=== PATIENT | male | born 1995 | race Asian ===

== ENCOUNTER 2017-09-18 13:28 | Emergency (ER) | payer MEDICAID, OTHER ==
[2017-09-18 13:43] VITALS: BP 122/76
[2017-09-18 14:43] LABS: APPEARANCE,URINE CLEAR; BILIRUBIN,URINE NEGATIVE (NEGATIVE); COLOR,URINE STRAW; GLUCOSE, URINE NEGATIVE (NEGATIVE); KETONES,URINE NEGATIVE (NEGATIVE); LEUKOCYTE ESTERASE,URINE NEGATIVE (NEGATIVE); NITRITE,URINE NEGATIVE (NEGATIVE); PROTEIN,URINE NEGATIVE (NEGATIVE); URINE SPECIFIC GRAVITY 1.002; UROBILINOGEN,URINE NEGATIVE mg/dL (<2.0)
[2017-09-18] MEDS ORDERED: HYDROCODONE/ACETAMINOPHEN 5-325 MG TABLET PO ONE (14:50)
[2017-09-18] MEDS ORDERED: CYCLOBENZAPRINE HCL 10 MG TABLET PO ONE (14:50)
--- NOTE | 2017-09-18 14:51 | ER Document Report ---
HPI - HPI Patient complains to provider of: right sided back pain Onset: This morning Onset/Duration: Sudden Quality of pain: Achy, Sharp Severity: Moderate Pain Level: 3 Context: Patient states he was lifting boxes at work, and his right lower back began to hurt after lifting a particularly heavy box. No loss of control of bowels or bladder. Associated Symptoms: None Exacerbated by: Movement Relieved by: Remaining still Similar symptoms previously: No Recently seen / treated by doctor: No - ROS ROS below otherwise negative: Yes Systems Reviewed and Negative: Yes All other systems reviewed and negative - CARDIOVASCULAR Cardiovascular: DENIES: Chest pain - RESPIRATORY Respiratory: DENIES: Trouble Breathing - GASTROINTESTINAL Gastrointestinal: DENIES: Abdominal Pain, Nausea - URINARY Urinary: DENIES: Dysuria, Urgency, Frequency - MUSCULOSKELETAL Musculoskeletal: REPORTS: Back Pain - DERM Skin Color: Normal Skin Problems: None Past Medical History - General Information source: Patient - Social History Smoking Status: Never Smoker Chew tobacco use (# tins/day): No Frequency of alcohol use: Occasional Drug Abuse: Marijuana Lives with: Family Family History: Reviewed & Not Pertinent Patient has suicidal ideation: No Patient has homicidal ideation: No Pulmonary Medical History: Reports: Hx Asthma GI Medical History: Reports: Hx Hiatal Hernia Past Surgical History: Reports: Hx Inguinal Hernia, Hx Orthopedic Surgery - right knee - Immunizations Immunizations up to date: Yes Hx Diphtheria, Pertussis, Tetanus Vaccination: Yes Vertical Provider Document - CONSTITUTIONAL Agree With Documented VS: Yes Exam Limitations: No Limitations General Appearance: WD/WN, No Apparent Distress Notes: No acute distress noted on entry to room. Patient on cell phone and laughing with friend in room. - INFECTION CONTROL TRAVEL OUTSIDE OF THE [place] IN LAST 30 DAYS: No - HEENT HEENT: Atraumatic, Normocephalic - RESPIRATORY Respiratory: Breath Sounds Normal, No Respiratory Distress - CARDIOVASCULAR Cardiovascular: Regular Rate, Regular Rhythm - GI/ABDOMEN Gastrointestinal: Abdomen Soft, Abdomen Non-Tender, Normal Bowel Sounds - BACK Notes: Tender right lumbar paraspinal muscles. Nontender L-spine. Mild discomfort with right leg raise, pt states "feels like my muscles at pulling" on the right side. Patient grimaces when asked to move for exam. - MUSCULOSKELETAL/EXTREMETIES Musculoskeletal/Extremeties: MAEW - NEURO Level of Consciousness: Awake, Alert, Appropriate - DERM Integumentary: Warm, Dry, No Rash Course - Re-evaluation Re-evalutation: 09/18/17 15:20 Urinalysis was normal and this was discussed with the patient - Vital Signs Vital signs: Temp Pulse Resp BP Pulse Ox 97.5 F 59 L 16 122/76 100 09/18/17 13:41 09/18/17 13:41 09/18/17 13:41 09/18/17 13:41 09/18/17 13:41 Discharge - Discharge Clinical Impression: Strain of lumbar paraspinous muscle Qualifiers: Encounter type: initial encounter Qualified Code(s): S39.012A - Strain of muscle, fascia and tendon of lower back, initial encounter Condition: Good Disposition: HOME, SELF-CARE Instructions: Ice Packs ([facility]), Muscle Strain ([facility]), Oral Narcotic Medication ( [facility]), Warm Packs ([facility]) Additional Instructions: Ice or heat packs to back muscles Ibuprofen every 8 hours for pain with food, tramadol for breakthrough pain Muscle relaxers as prescribed No work until Thursday What with your primary care doctor Thursday for recheck if symptoms not improved Return as needed Prescriptions: Cyclobenzaprine HCl [Flexeril 10 mg Tablet] 10 mg PO TIDP PRN #15 tab PRN Reason: Ibuprofen 600 mg PO TID #15 tablet Tramadol HCl [Ultram 50 mg Tablet] 50 mg PO PRN PRN #10 tablet PRN Reason: Forms: Return to Work Referrals: ESTELA HERNANDEZ MD [Primary Care Provider] - Follow up as needed
== END 2017-09-18 15:40 | disposition home or self-care (01) ==
LOC: ER 13:28
DX: S39.012A Strain of muscle, fascia and tendon of lower back, initial encounter (principal); M54.9 Dorsalgia, unspecified; X50.0XXA Overexertion from strenuous movement or load, initial encounter; Y99.0 Civilian activity done for income or pay; J45.909 Unspecified asthma, uncomplicated
CPT/HCPCS: 81001; 99283